=== PATIENT | female | born 1980 | race Hispanic/Latino ===

== ENCOUNTER 2018-06-03 16:48 | Emergency (ER) | payer BC ==
[2018-06-04 00:01] VITALS: BP 119/82; PULSE 71; RESP 20; TEMP 98; O2SAT 99
--- NOTE | 2018-06-04 08:03 | OBDCSUM ---
Datetime: 06/03/2018 17:57 Discharge Diagnosis, Provider: False Labor - Undelivered
--- NOTE | 2018-06-04 08:04 | OBHP ---
Datetime: 06/03/2018 17:51 IP Adm Impression: Term, intrauterine ; No Active Labor; Intact Membranes IP Admit Plan: Discharge home Admit Comment, IP Provider: [id number] IUP at 39w c/o CTX thoughout the day. She felt some wetness in vagina in the morning. No VB. +FM POBGYNH: G1; no STD PMH: denies PSoH: [id number] smoking ETOH drugs PSH colonscopy / surgery for Crohn's Allergy:NKA PNC: Dr Ford - joellen chart rev'd GBS neg A: IUp at 39w no evidenece of labor or SROM PLAN: discharge home / labor instructions / pre-eclampsia warning Pelvic Type - PN: Adequate Extremities - PN: Normal Abdomen - PN: Normal Back - PN: Normal Breast - PN: Not Done Lungs - PN: Normal Heart - PN: Normal Thyroid - PN: Normal Neurologic - PN: Normal HEENT - PN: Normal General - PN: Normal Presentation-Admit: Vertex FHR - Baseline A Provider: 130 Membranes, Provider: Intact Contraction Comments Provider: none Comments, ACOG Physical Exam: ROS: General: feels nausea HEENT: No ARMANDO; no visual dist CV: no CP; no palpitaqions Resp: No SOB; no cough Musculoskeletal : no joint pain Pool Provider: Negative Ferning Provider: Negative IP Hx Assessment: The History has been Reviewed and is Current EGA AdmitDate IP: 39.3 IP Chief Complaint: Uterine contractions NICHD Variability Prov Fetus A: Moderate 6-25bpm NICHD Accel Fetus A IP Provider: [id number] FHR Category Provider Fetus A: Category I Dilatation, Provider: 0 Effacement, Provider: 0 Genitourinary Exam: Normal DTRs - PN: Normal
== END 2018-06-03 18:00 | disposition home or self-care (01) ==
LOC: H.EROB2 16:48
DX: O26.93 Pregnancy related conditions, unspecified, third trimester (principal); R10.2 Pelvic and perineal pain; Z3A.39 39 weeks gestation of pregnancy

== ENCOUNTER 2018-06-08 00:57 | Inpatient (IN) | payer BC ==
[2018-06-08] MEDS ORDERED: Oxytocin 30 UNIT 30 UNITS/500 ML BAG IV ONE ×2 (01:27→01:37)
[2018-06-08] MEDS ORDERED: Oxytocin 10 Units/ml Inj ONE (01:27)
[2018-06-08] MEDS ORDERED: Lactated Ringer's 1,000 ML IV SCH (01:30)
[2018-06-08] MEDS ORDERED: Oxytocin 10 Units/ml Inj IM ONE (01:31)
--- NOTE | 2018-06-08 01:43 | OBHP ---
Datetime: 06/08/2018 01:33 IP Adm Impression: Term, intrauterine ; Active labor IP Admit Plan: Admit to unit; Initiate labor protocol Admit Comment, IP Provider: 37yo with IUP at 40.1 weeks. She presents to the LND with contracti on pains which had started earlier on in the day. She denies any vaginal bleeding or leakage of fluid . PNC with Dr Bryant, uncomplicated course. RH- Neg, Rhogam was given. GBS Negative as per previous note / patient. FHx- Crohns PSHx: Non contributory SocialHx: Denies. O : Afebrile Chest: Clnically Clear Abd: Soft, NT, BS- present FHR: Category 1 with some vaiables [place]: Q 2-3 SVE: /-2 Assessment: IUP at Term in Active Labor NSt Reactive. Plan: Admit to LND Monitor the progress of labor Anticipate vaginal Delivery. Pelvic Type - PN: Adequate Extremities - PN: Normal Abdomen - PN: Normal Back - PN: Normal Breast - PN: Normal Lungs - PN: Normal Heart - PN: Normal Thyroid - PN: Normal Neurologic - PN: Normal HEENT - PN: Normal General - PN: Normal Presentation-Admit: Vertex FHR - Baseline A Provider: 140 Amniotic Fluid Color, Provider: Clear Membranes, Provider: Ruptured Contraction Comments Provider: Q 2-3 Gestation - Est Wks by US: 40.0 EGA AdmitDate IP: 40.1 IP Chief Complaint: Uterine contractions; Maternal discomfort NICHD Variability Prov Fetus A: Moderate 6-25bpm NICHD Accel Fetus A IP Provider: [id number] FHR Category Provider Fetus A: Category I NICHD Decel Fetus A IP Provider: Early; Variable Dilatation, Provider: 9 Effacement, Provider: 100 Station, Provider: -2 Genitourinary Exam: Normal DTRs - PN: Normal
[2018-06-08 01:55] LABS: BASO # 0.1 K/uL (0.0-0.2); BASO % 0.6 % (0.0-2.0); EOS # 0.1 K/uL (0.0-0.7); EOS % 0.8 % (0.0-4.0); HEMOGLOBIN 14.2 g/dL (12.0-16.0); LYMPH # 2.4 K/uL (1.0-4.3); LYMPH % 20.9 % (20.0-40.0); MEAN CELL VOLUME 97.1 fl (81.0-99.0); MEAN CORPUSCULAR HEMOGLOBIN 31.6 pg (27.0-31.0); MEAN CORPUSCULAR HGB CONC 32.6 g/dL (33.0-37.0); MEAN PLATELET VOLUME 12.8 fl (7.2-11.7); MONO # 0.7 K/uL (0.0-0.8); MONO % 6.3 % (0.0-10.0); NEUT # 8.3 K/uL (1.8-7.0); NEUT % 71.4 % (50.0-75.0); NRBC % 0.2 % (0.0-0.0); RBC 4.5 Mil/uL (3.80-5.20); RED CELL DISTRIBUTION WIDTH 12.4 % (11.5-14.5); WHITE BLOOD COUNT 11.6 K/uL (4.8-10.8)
[2018-06-08] MEDS ORDERED: Benzocaine/Menthol SPRAY TOP PRN ×2 (04:43→05:28)
[2018-06-08] MEDS ORDERED: Oxycodone/Acetaminophen 5/325 mg Tab PO PRN ×2 (04:43→05:28)
[2018-06-09 07:14] LABS: HEMOGLOBIN 11.9 g/dL (12.0-16.0); MEAN CELL VOLUME 101.6 fl (81.0-99.0); MEAN CORPUSCULAR HEMOGLOBIN 32.6 pg (27.0-31.0); MEAN CORPUSCULAR HGB CONC 32.1 g/dL (33.0-37.0); RBC 3.66 Mil/uL (3.80-5.20); RED CELL DISTRIBUTION WIDTH 12.8 % (11.5-14.5); WHITE BLOOD COUNT 10.2 K/uL (4.8-10.8)
--- NOTE | 2018-06-09 10:23 | OBPPN ---
Datetime: 06/09/2018 10:21 PP Pain Prov: Within normal limits PP Nausea Prov: Denies PP Flatus Prov: Yes PP Breasts Prov: Normal PP Heart Prov: Normal PP Lungs Prov: Normal PP Abdomen/Uterus Prov: Normal PP Lochia Prov: Normal PP Vulva/Perineum Prov: Normal PP CVA Tenderness Prov: Normal PP Extremities Prov: Normal PP Comments Phys Exam Prov: Fundus firm under umbilicus PP Impression Prov: Normal progression PP Plan Prov: Continue present management; Discharge PP Progress Note Prov: Patient denies CP, no SOB, no N/v, tolerating PO diet, ambulating/voiding wel l, mild lochia, abdominal pain tolerable with meds A/P PPD #1 1. Patient for discharge later today 2. Discharge instructions reviewed IP PP Procedures: None Vital Signs Provider PP: Reviewed; Within Normal Limits
--- NOTE | 2018-06-09 10:25 | OBDCSUM ---
Datetime: 06/09/2018 10:22 Discharged to, Provider: Home Follow up at, Provider: OB Disch Instr Activity: Normal activity Disch Instr Diet: Regular Discharge Instructions, Provider: Routine instructions given Discharge Diagnosis, Provider: Term Delivered Discharge Time: 06/09/2018 10:22 Follow up in weeks, Provider: 6 wks Disch Referrals: None Contraception discussed, Prov: Yes
--- NOTE | 2018-06-09 13:45 | OBADHP ---
Datetime: 06/08/2018 01:33 Admit Comment, IP Provider: 37yo with IUP at 40.1 weeks. She presents to the LND with contracti on pains which had started earlier on in the day. She denies any vaginal bleeding or leakage of fluid . PNC with Dr Bryant, uncomplicated course. RH- Neg, Rhogam was given. GBS Negative as per previous note / patient. FHx- Crohns PSHx: Non contributory SocialHx: Denies. O : Afebrile Chest: Clnically Clear Abd: Soft, NT, BS- present FHR: Category 1 with some vaiables [place]: Q 2-3 SVE: 9/100/-2 Assessment: IUP at Term in Active Labor NSt Reactive. Plan: Admit to LND Monitor the progress of labor Anticipate vaginal Delivery. Pelvic Type - PN: Adequate Extremities - PN: Normal Abdomen - PN: Normal Back - PN: Normal Breast - PN: Normal Lungs - PN: Normal Heart - PN: Normal Thyroid - PN: Normal Neurologic - PN: Normal HEENT - PN: Normal General - PN: Normal Presentation-Admit: Vertex FHR - Baseline A Provider: 140 Amniotic Fluid Color, Provider: Clear Membranes, Provider: Ruptured Contraction Comments Provider: Q 2-3 Gestation - Est Wks by US: 40.0 IP Chief Complaint: Uterine contractions; Maternal discomfort NICHD Variability Prov Fetus A: Moderate 6-25bpm NICHD Accel Fetus A IP Provider: [id number] FHR Category Provider Fetus A: Category I NICHD Decel Fetus A IP Provider: Early; Variable Dilatation, Provider: 9 Effacement, Provider: 100 Station, Provider: -2 Genitourinary Exam: Normal DTRs - PN: Normal EGA AdmitDate IP: 40.1 IP Adm Impression: Term, intrauterine ; Active labor IP Admit Plan: Admit to unit; Initiate labor protocol Datetime: 06/03/2018 17:51 Comments, ACOG Physical Exam: ROS: General: feels nausea HEENT: No ARMANDO; no visual dist CV: no CP; no palpitaqions Resp: No SOB; no cough Musculoskeletal : no joint pain Pool Provider: Negative Ferning Provider: Negative IP Hx Assessment: The History has been Reviewed and is Current
--- NOTE | 2018-06-09 13:45 | OBDS ---
DELIVERY PERSONNEL Delivery Doctor: Stefani Osei MD Licensed [employer] App[employer]: Keren Vazquez RN MATERNAL INFORMATION Delivery Anesthesia: None Medications in Delivery: Oxycotin Placenta Cultured: No Maternal Complications: None Provider Comments: Uncomplicated spontaneous vaginal delivery of a viable male with sco res of 9 and 9. Position: SRINIVAS. Delivered over a second degree perineal laceration which was repaired. EBL- 200mls Patient tolerated the procedure well. LABOR SUMMARY EDC: 06/07/2018 00:00 No. Babies in Womb: 1 LABOR INFORMATION Onset of Labor: 06/07/2018 22:45 Group B Beta Strep: Negative VAGINAL DELIVERY Sponge Count Correct: Yes Sharps Count Correct: Yes BABY A INFORMATION Born in Route : No : N/A IDENTIFICATION/MEDS BABY A ID Band Location: Left Leg; Left Arm
[2018-06-09 23:12] VITALS: BP 126/68; PULSE 74; RESP 20; TEMP 98.3; O2SAT 100
== END 2018-06-09 18:00 | disposition home or self-care (01) | DRG 807 ==
LOC: H.EROB2 00:57 → H.L&D 01:27 → H.OB/GYN 06:00
PROVIDERS: ADMIT Obstetrics & Gynecology; ATTEND Obstetrics & Gynecology
PROC: 10E0XZZ Delivery of Products of Conception, External Approach (ICD-10-PCS; principal; 2018-06-08)
PROC: 0KQM0ZZ Repair Perineum Muscle, Open Approach (ICD-10-PCS; 2018-06-08)
PROC: 4A1HXCZ Monitoring of Products of Conception, Cardiac Rate, External Approach (ICD-10-PCS; 2018-06-08)
DX: O70.1 Second degree perineal laceration during delivery (principal); Z37.0 Single live birth; Z3A.40 40 weeks gestation of pregnancy